=== PATIENT | male | born 1945 | race Caucasian/White ===

== ENCOUNTER 2020-12-09 10:00 | Inpatient (IN) | payer OTHER ==
[~2020-12-09] VITALS: Ht 172.7 cm; Wt 94.3 kg
[~2020-12-09 10:00] MED LIST: NABUMETONE500 MG PO; PERCOCET 5/3251 TAB PO
[2020-12-09] MEDS ORDERED: LASIX20 MG PO (14:26)
[2020-12-09] MEDS ORDERED: GLIMEPIRIDE4 MG (14:26)
[2020-12-09] MEDS ORDERED: PLAVIX75 MG PO (14:27)
[2020-12-09] MEDS ORDERED: LOPRE PO (14:27)
[2020-12-09] MEDS ORDERED: SYNTHROID50 MCG PO (14:27)
[2020-12-09] MEDS ORDERED: OMEGA PO (14:28)
[2020-12-09] MEDS ORDERED: LIPIT PO (14:28)
[2020-12-09] MEDS ORDERED: AMBIEN10 MG PO (14:29)
[2020-12-09] MEDS ORDERED: LANTUS (14:29)
[2020-12-23] MEDS ORDERED: METOPROLOL SUCC50 MG PO (14:02)
[2020-12-23] MEDS ORDERED: LIPITOR20 MG (14:02)
[2020-12-23] MEDS ORDERED: OMEGA 3 1,0001 EACH (14:03)
[2020-12-23] MEDS ORDERED: OMEGA 3 500 SO1 EACH PO (14:03)
== END 2020-12-26 19:07 | disposition home or self-care (01) | DRG 470 ==
LOC: O/R 12-16 10:00 → SURH 12-23 12:00 → O/R 12-23 12:00 → SURH 12-23 16:44
PROVIDERS: ADMIT Orthopaedic Surgery; ATTEND Orthopaedic Surgery
PROC: 0SRD0J9 Replacement of Left Knee Joint with Synthetic Substitute, Cemented, Open Approach (ICD-10-PCS; principal; 2020-12-23 16:30)
DX: M17.12 Unilateral primary osteoarthritis, left knee (principal); D62 Acute posthemorrhagic anemia; M85.862 Other specified disorders of bone density and structure, left lower leg; I11.9 Hypertensive heart disease without heart failure; I25.10 Atherosclerotic heart disease of native coronary artery without angina pectoris; E11.9 Type 2 diabetes mellitus without complications; Z79.4 Long term (current) use of insulin; E03.8 Other specified hypothyroidism; Z20.822 Contact with and (suspected) exposure to COVID-19